=== PATIENT | female | born 1980 | race African-American/Black ===

== ENCOUNTER 2016-04-22 05:53 | Day surgery (SDC) | payer OTHER ==
[~2016-04-22] VITALS: Ht 152.4 cm; Wt 54.0 kg
[~2016-04-22 05:53] MED LIST: OMEP40CA6 PO
[2016-04-22 07:05] VITALS: Ht 152.4 cm; Wt 54.0 kg
[2016-04-22 07:29] VITALS: BP 110/66; PULSE 75; RESP 17
[2016-04-22 08:05] VITALS: BP 94/61; PULSE 62; RESP 20
[2016-04-22] MEDS ORDERED: MIDAZOLAM 1 MG/ML 2 ML INJ ONE (08:38)
[2016-04-22] MEDS ORDERED: FENTAnyl 50 MCG/ML VIAL ONE (08:39)
--- NOTE | 2016-04-22 18:47 | GILP ---
DATE OF PROCEDURE: 04/22/2016 NAME OF PROCEDURE: Esophagogastroduodenoscopy and biopsy. SURGEON: Denton Almazan MD PREOPERATIVE DIAGNOSES: 1. Abdominal pain. 2. Chronic heartburn. POSTOPERATIVE DIAGNOSES: 1. Hiatal hernia. 2. Gastroesophageal reflux disease. 3. Gastritis with erosions. 4. Gastric mucosal biopsies were taken for Helicobacter pylori test. INDICATION FOR THE PROCEDURE: Ms. Shannan Albrecht is a 36-year-old female patient who had upper abdomin al pain and chronic heartburn, not responding to therapy. The patient was scheduled for endoscopic examination for further evaluation. The procedure and possible complications are well explained to the patient, she understood and conse nted to the procedure. DESCRIPTION OF PROCEDURE: Under the influence of fentanyl and Versed, the gastroscope was carefully introduced into the esophagus and under direct vision, it was advanced to the stomach and through t he pylorus into the duodenal bulb and descending duodenum. FINDINGS: ESOPHAGUS: The patient had hiatal hernia and gastroesophageal reflux disease. STOMACH: She had gastritis. Gastric mucosal biopsies were taken for H. pylori test. DUODENUM: Normal. She tolerated the procedure very well and there was no complication from the procedure. At the end of the procedure, she was awake with stable vital signs and she was discharged home to the care of h er family. IMPRESSION: 1. Hiatal hernia. 2. Gastroesophageal reflux disease. 3. Gastritis with erosions. 4. Gastric mucosal biopsies were taken for Helicobacter pylori test. PLAN: 1. Omeprazole 40 mg p.o. q.a.m. 2. Await H. pylori test report. Dictated By: DENTON DE LOS SANTOS/SAMANTHA Conf#: [id number] DID#: [id number] CC: DENTON ALMAZAN MD;*EndCC*
== END 2016-04-22 10:04 | disposition home or self-care (01) ==
LOC: GIL 05:53
PROVIDERS: ATTEND Internal Medicine Gastroenterology
DX: B96.81 Helicobacter pylori [H. pylori] as the cause of diseases classified elsewhere (principal); K44.9 Diaphragmatic hernia without obstruction or gangrene; K21.9 Gastro-esophageal reflux disease without esophagitis; K29.60 Other gastritis without bleeding
CPT/HCPCS: 43239; 87081; J2250; J3010; Z7610